=== PATIENT | female | born 1950 | race Caucasian/White ===

== ENCOUNTER 2024-04-02 06:26 | Day surgery (SDC) | payer MEDICARE, SELFPAY ==
[2024-03-29 07:58] VITALS: BMI 24.7
--- NOTE | 2024-03-29 12:33 | P.CONAN_ITS ---
Documented by User: Joanna Wharton NP 03/29/24 12:34 HPI - Anesthesia Eval Consult details Narrative: 73yo F for Right Cataract Extraction IOL Insertion No previous cataract on record [facility] Past Medical History Medical History Bilateral cataracts Osteoporosis Surgical History Surgical History H/O colonoscopy Social History Social History Are you a primary managed care coordinator to a significant other at home: No Do you presently have visiting nurse or other home services: No Patient Tobacco Use Status: Never used Tobacco Use of substances other than those prescribed or required for medical reasons: No Are you DNR?: No Advance Directives: No Advance Directives Information Provided: Yes Advance Directives on File: No Recently lost weight without trying: No Nutrition Risks: No Nutritional Risk Patient : No : No Meds Allergies Allergy/AdvReac Type Severity Reaction Status Date / Time Penicillins Allergy Unknown Verified 04/02/24 07:01 Home Medications ?Medication ?Instructions ?Recorded ?Confirmed ?Last Taken ?Type No Known Home Meds 03/29/24 03/29/24 Unknown History Exam Height,Weight and Vital Signs: Height 5 ft 1.02 in Weight 59.3 kg Assessment and Plan Assessment Anesthesia Assessment: Chart Reviewed Documented by User: Mary Guerrier MD 04/02/24 07:58 [facility] Past Medical History Medical History Bilateral cataracts Osteoporosis Surgical History Surgical History H/O colonoscopy History of Problems with Anesthesia: No Social History Social History Are you a primary managed care coordinator to a significant other at home: No Do you presently have visiting nurse or other home services: No Patient Tobacco Use Status: Never used Tobacco Use of substances other than those prescribed or required for medical reasons: No Are you DNR?: No Advance Directives: No Advance Directives Information Provided: Yes Advance Directives on File: No Recently lost weight without trying: No Nutrition Risks: No Nutritional Risk Patient : No : No Meds Allergies Allergy/AdvReac Type Severity Reaction Status Date / Time Penicillins Allergy Unknown Verified 04/02/24 07:01 Home Medications ?Medication ?Instructions ?Recorded ?Confirmed ?Last Taken ?Type No Known Home Meds 03/29/24 03/29/24 Unknown History Assessment and Plan Assessment Anesthesia Assessment: Anesthesia Plan Discussed Final Anesthetic Review History of Problems with Anesthesia: No NPO: Yes ASA Class: II Final Preanesthetic Review: Meds/Allgs Chart Reviewed, Consent Obtained/Reviewed and Anes Risks/Benef Reviewed Patient Risk: Low Procedure Risk: Low Anesthetic Plan Anesthetic Plan: MAC: Disposition: Standard PACU
--- OUTSIDE RECORDS SUMMARY | 2024-04-02 06:28 | XMS_ITS ---
Author Organization [facility] Address [address] [place] [address] Care Team Providers Care Cloth Folder Hand Name Role Phone LIZZ GUZMAN Unavailable [phone] ALLERGIES Allergen (clinical drug ingredient) Drug/Non Drug Allergy documented on EMR Reaction Allergy Type Onset Date Status Penicillin Unknown Drug Allergy Active REASON FOR VISIT pt here for MWV. Had labs done. no questions or concerns MEDICATIONS Medication SIG (Take, Route, Frequency, Duration) Notes Start Date End Date Status Collagen - as directed Externally Active Vitamin D 50 MCG (1999) 1 tablet Orally Once a day Active VITAL SIGNS Heart Rate 88 /min 08/24/2023 Blood pressure systolic 120 mm Hg 08/24/19 24 Blood pressure diastolic 85 mm Hg 024 Weight 124.4 lbs 08/24/2023 BMI 24.29 kg/m2 08/24/2023 Height 60 in 08/24/2023 Oximetry 99 % 08/24/2023 Encounters Encounter Location Date Provider Diagnosis [facility] [address] [place] [address] 08/24/2023 LIZZ GUZMAN Annual physical exam Z00.00 and Other specified counseling Z71.89 ASSESSMENTS Encounter Date Diagnosis Assessment Notes Treatment Notes Treatment Clinical Notes Section Notes 08/24/2023 Annual physical exam (ICD-10 - Z00.00) Medicare Wellness Patient seen and examined. Patient is here for Medicare wellness examination. I reviewed standard Medicare wellness paperwork including PHQ-9, list of medications, allergies,family history, social history, surgical history, and paperwork is scanned separately. I screened the patient for current standard preventive protocols and discussed role of colonoscopy, bone density,age appropriate immunizations including pneumonia vaccine, flu and COVID vaccine, new RSV vaccine and shingles vaccine. We discussed at length role of healthcare proxy. Having a healthcare proxy is important for decision making. Patient provided with healthcare proxy paperwork. Discussion started on end-of-life issues and [place] order of life-sustaining treatment. 08/24/2023 Other specified counseling (ICD-10 - Z71.89) Medicare Wellness Patient seen and examined. Patient is here for Medicare wellness examination. I reviewed standard Medicare wellness paperwork including PHQ-9, list of medications, allergies,family history, social history, surgical history, and paperwork is scanned separately. I screened the patient for current standard preventive protocols and discussed role of colonoscopy, bone density,age appropriate immunizations including pneumonia vaccine, flu and COVID vaccine, new RSV vaccine and shingles vaccine. We discussed at length role of healthcare proxy. Having a healthcare proxy is important for decision making. Patient provided with healthcare proxy paperwork. Discussion started on end-of-life issues and [place] order of life-sustaining treatment. PLAN OF TREATMENT Pending Test Test Name Order Date LIPID PANEL, STANDARD 08/24/2023 Next Appt Details Provider Name:LIZZ GUZMAN, 09:45:00 AM, [address] [facility], [place], [address], Progress Notes * Johana KINGOB:1950 ( 73 yo F)Acc No.[id number]:08/24/2023 Progress Note Patient:??LIVE Tracey Provider:??LIZZ GUZMAN MD :1950?Age:73 Y?Sex:Fe male Date:08/24/2023 Address:[address] [place], [place] [id number] Subjective: * Chief Complaints: * ?1. pt here for MWV. Lopez d labs done. no questions or concerns. * HPI: ?Constitutional:? Patient denies any chest pain shortness of breath or other active symptoms. ?Patient seen and examined. Chart was reviewed and edited. Medications were reviewed. Problem list reviewed updated. Allergies reviewed. Social history reviewed. Reviewed recent labs and imaging artist consultant notes. 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 * ROS:?All Other Systems:?Review of Systems (ROS)??All others negative except those mentioned in HPI.? * Medical History:??Osteoporos is, Hearing loss/ hearing aides. * Surgical History:??tolsillec olivia , adenoidectomy , section Mar 1979. * Hospitalization/Major Diagno stic Procedure:??Denies Past Hospitalization. * Family History:??Father: dec eased.??Mother: alive.??3 sister(s) . 1 son(s) , 1 daughter(s) . .?? father mhx parkinsons/dementia mother mhx non hidgkins lymphoma/osteoporosis sister 1 mhx melanoma sister 2 mhx breast cancer sister 3 mhx breast cancer daughter thyroidectomy. * Medications:??Taking Vitamin D 50 MCG (2000 UT) Tablet 1 tablet Orally Once a day , Taking Collagen - Cream as directed Externally , Discontinued HPA ADAPT ORAL , Discontinued Cortisol Gang Miner - Tablet as directed Orally , Discontinued Probiotic 250 MG Capsule as directed Orally once a day , Notes to Pharmacist: office liquid form, Discontinued Fish Oil 500 MG Capsule 1 capsule Orally Twice a day , Discontinued Vitamin C , Medication List reviewed and reconciled with the patient * Allergies:??Penicillin. Objective: * Vitals:??HR:88/min, BP:120/8 5mm Hg, Wt:124.4lbs, BMI:24.29Index, Ht: 60 in, Oxygen sat %:99%. * Physical Examination:?Patient seen and examined ?Vitals noted ?Head and ENT: PERRLA EOMI, neck supple, good range of motion, thyroid within normal limits. No sinus tenderness. ?Cardiovascular system S1 and S2 with no murmur or gallop or rubs. ?Lungs clear to percussion and auscultation ?Abdomen soft positive bowel sounds no hepatosplenomegaly ?Extremities no edema. ?Neuro: No gross deficit, sensation and power intact. Gait is stable. Reflexes appear normal ?Gait appears age-appropriate ?A small red triangular red spot at the bottom of the nose tip. Assessment: * Assessment: 1.??Annual physical exam - Z 00.00??2.??Other specified counseling - Z71.89?? Medicare Wellness Patient seen and examined. Patient is here for Medicare wellness examination. I reviewed standard Medicare wellness paperwork including PHQ-9, list of medications, allergies,family history, social history, surgical history, and paperwork is scanned separately. I screened the patient for current standard preventive protocols and discussed role of colonoscopy, bone density,age appropriate immunizations including pneumonia vaccine, flu and COVID vaccine, new RSV vaccine and shingles vaccine. We discussed at length role of healthcare proxy. Having a healthcare proxy is important for decision making. Patient provided with healthcare proxy paperwork. Discussion started on end-of-life issues and [place] order of life- sustaining treatment. Plan: * Treatment: * Labs:?? * ?Lab: LIPID PANEL, STANDARD * Procedure Codes:??G0439 SAVANNAH AL WELLNESS VST; PPS SUBSQT VST, G0442 ANNUAL ALCOHOL MISUSE SCREEN 15 MIN, Modifiers: 59 , G0444 ANNUAL DEPRESSION SCREENING 15 MIN, Modifiers: 59 * Images: Billing Information: * Visit Code:?? * Procedure Codes:?? G0439 ANNUAL WELLNESS VST; PPS SUBSQT VST. G0442 ANNUAL ALCOHOL MISUSE SCREEN 15 MIN. Modifiers: 59 G0444 ANNUAL DEPRESSION SCREENING 15 MIN. Modifiers: 59 Care Plan Details* * Sign off status: Completed true * Provider:??LIZZ GUZMAN MD Date:?? 024 History and Physical Notes * HPI (History of Present Illness) Category Sub-Category Detail Notes Category Not es Constitutional Patient denies any chest pain shortness of breath or other active symptoms. Patient seen and examined. Chart was reviewed and edited. Medications were reviewed. Problem list reviewed updated. Allergies reviewed. Social history reviewed. Reviewed recent labs and imaging artist consultant notes. 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 Physical Examination Category Sub-Category Detail Notes Section Note s Patient seen and examined Vitals noted Head and ENT: PERRLA EOMI, neck supple, good range of motion, thyroid within normal limits. No sinus tenderness. Cardiovascular system S1 and S2 with no murmur or gallop or rubs. Lungs clear to percussion and auscultation Abdomen soft positive bowel sounds no hepatosplenomegaly Extremities no edema. Neuro: No gross deficit, sensation and power intact. Gait is stable. Reflexes appear normal Gait appears age-appropriate A small red triangular red spot at the bottom of the nose tip
--- OUTSIDE RECORDS SUMMARY | 2024-04-02 06:28 | XMS_ITS ---
Author Organization [facility] Address [address] [place] [address] Care Team Providers Care Adult Services Librarian Name Role Phone LIZZ GUZMAN Unavailable [phone] RESULTS Component Value Reference Range Notes LIPID PANEL, STANDARD Reviewed date:08/26/2023 10:33:11 AM Interpretation: Performing Lab:NL2, [place] [facility] [place], [place] [id number] Gail Paz Notes/Report: FASTING: YES FASTING:YES CHOLESTEROL, TOTAL 230 <200 mg/dL HDL CHOLESTEROL 73 > OR = 50 mg/dL TRIGLYCERIDES 94 <150 mg/dL LDL-CHOLESTEROL 137 Reference range: <100 Desirable range <100 mg/dL for primary prevention; <70 mg/dL for patients with CHD or diabetic patients with > or = 2 CHD risk factors. LDL-C is now calculated using the Edward-Fox calculation, which is a validated novel method providing better accuracy than the Friedewald equation in the estimation of LDL-C. Edward LOYA et al. LIANA. 2013;310(19): 8914-7090 (http://education.HemoShear.com/faq/FAQ16 4) CHOL/HDLC RATIO 3.2 <5.0 (calc) NON HDL CHOLESTEROL 157 <130 mg/dL (calc) For patients with diabetes plus 1 major ASCVD risk factor, treating to a non-HDL-C goal of <100 mg/dL (LDL-C of <70 mg/dL) is considered a therapeutic option. COMPREHENSIVE METABOLIC PANE L Reviewed date:08/26/2023 10:29:12 AM Interpretation: Performing Lab:NL2, [place] [id number] Gail Paz Notes/Report: FASTING:YES FASTING: YES GLUCOSE 85 65-99 mg/dL Fasting reference interval UREA NITROGEN (BUN) 15 7-25 mg/dL CREATININE 0.84 0.60-1.00 mg/dL EGFR 74 > OR = 60 mL/min/1.73m2 BUN/CREATININE RATIO SEE NOTE: - (calc) Not Reported: BUN and Creatinine are within reference range. SODIUM 137 135-146 mmol/L POTASSIUM 4.5 3.5-5.3 mmol/L CHLORIDE 101 98-110 mmol/L CARBON DIOXIDE 27 20-32 mmol/L CALCIUM 9.8 8.6-10.4 mg/dL PROTEIN, TOTAL 7.4 6.1-8.1 g/dL ALBUMIN 4.4 3.6-5.1 g/dL GLOBULIN 3.0 1.9-3.7 g/dL (calc) ALBUMIN/GLOBULIN RATIO 1.5 1.0-2.5 (calc) BILIRUBIN, TOTAL 0.4 0.2-1.2 mg/dL ALKALINE PHOSPHATASE 78 37-153 U/L AST 17 10-35 U/L ALT 11 6-29 U/L CBC (INCLUDES DIFF/PLT) Reviewed date:08/26/2023 10:32:49 AM Interpretation: Performing Lab:NL2, [id number] Gail Paz Notes/Report: FASTING:YES FASTING: YES WHITE BLOOD CELL COUNT 5.5 3.8-10.8 Thousand/ uL RED BLOOD CELL COUNT 4.98 3.80-5.10 Million/uL HEMOGLOBIN 14.0 11.7-15.5 g/dL HEMATOCRIT 44.9 35.0-45.0 % MCV 90.2 80.0-100.0 fL MCH 28.1 27.0-33.0 pg MCHC 31.2 32.0-36.0 g/dL RDW 13.5 11.0-15.0 % PLATELET COUNT 253 140-400 Thousand/uL MPV 9.7 7.5-12.5 fL ABSOLUTE NEUTROPHILS 3042 0055-1267 cells/uL ABSOLUTE LYMPHOCYTES [phone] cells/uL ABSOLUTE MONOCYTES 501 200-950 cells/uL ABSOLUTE EOSINOPHILS 160 15-500 cells/uL ABSOLUTE BASOPHILS 50 0-200 cells/uL NEUTROPHILS 55.3 LYMPHOCYTES 31.8 MONOCYTES 9.1 EOSINOPHILS 2.9 BASOPHILS 0.9 URINALYSIS, COMPLETE Reviewed date:08/26/2023 10:29:32 AM Interpretation: Performing Lab:NL2, [place] [id number] Sharrisuki Fernanda Rowley Notes/Report: FASTING:YES FASTING: YES COLOR YELLOW YELLOW APPEARANCE CLEAR CLEAR SPECIFIC GRAVITY 1.006 1.001-1.035 PH 6.0 5.0-8.0 GLUCOSE NEGATIVE NEGATIVE BILIRUBIN NEGATIVE NEGATIVE KETONES NEGATIVE NEGATIVE OCCULT BLOOD NEGATIVE NEGATIVE PROTEIN NEGATIVE NEGATIVE NITRITE NEGATIVE NEGATIVE LEUKOCYTE ESTERASE NEGATIVE NEGATIVE WBC NONE SEEN < OR = 5 /HPF RBC NONE SEEN < OR = 2 /HPF SQUAMOUS EPITHELIAL CELLS NONE SEEN < OR = 5 /HPF BACTERIA NONE SEEN NONE SEEN /HPF HYALINE CAST NONE SEEN NONE SEEN /LPF NOTE This urine was analyzed for the presence of WBC, RBC, bacteria, casts, and other formed elements. Only those elements seen were reported. VITAMIN D,25-OH,TOTAL,IA Reviewed date:08/26/2023 10:29:59 AM Interpretation: Performing Lab:NL2, [place] [id number] Gail Paz Notes/Report: FASTING:YES FASTING: YES VITAMIN D,25-OH,TOTAL,IA 70 30-100 ng/mL Vitamin D Status 25-OH Vitamin D: Deficiency: <20 ng/mL Insufficiency: 20 - 29 ng/mL Optimal: > or = 30 ng/mL For 25-OH Vitamin D testing on patients on D2-supplementation and patients for whom quantitation of D2 and D3 fractions is required, the [facility]() 25-OH VIT D, (D2,D3), LC/MS/MS is recommended: order code 42765 (patients >2yrs). See Note 1 Note 1 For additional information, please refer to http://education.August/faq/IUB486 (This link is being provided for informational/ educational purposes only.) Encounters Encounter Location Date Provider Diagnosis [facility] [address] [place] [address] 08/17/2023 LIZZ GUZMAN Adult general medica l exam Z00.00 ; Vitamin D deficiency E55.9 ; Abdominal discomfort R10.9 and Tachycardia R00.0 ASSESSMENTS Encounter Date Diagnosis Assessment Notes Treatment Notes Treatment Clinical Notes Section Notes 08/17/2023 Adult general medical exam (ICD-10 - Z00.00) 08/17/2023 Vitamin D deficiency (ICD-10 - E55.9) 08/17/2023 Abdominal discomfort (ICD-10 - R10.9) 08/17/2023 Tachycardia (ICD-10 - R00.0) PLAN OF TREATMENT Next Appt Details Provider Name:LIZZ GUZMAN, 09:45:00 AM, [address], [place], [address], Progress Notes * Johana MANCINIOB:1950 ( 73 yo F)Acc No.[id number]:08/17/2023 Patient:??Tracey MANCINI :1950?Age:73 Y?Sex:Fe male Address:[address] [place] [address] Subjective: * Chief Complaints: * ? * Medical History:?? * Surgical History:?? * Hospitalization/Major Diagno stic Procedure:?? * Medications:?? Objective: Assessment: * Assessment: 1.??Adult general medical ex am - Z00.00??2.??Vitamin D deficiency - E55.9??3.??Abdominal discomfort - R10.9??4.??Tachycardia - R00.0?? Plan: * Treatment: 2.??Vitamin D deficiency?LAB: LIPID PANEL, STANDARD ?LAB: COMPREHENSIVE METABOLIC PANEL ?LAB: CBC (INCLUDES DIFF/PLT) ?LAB: URINALYSIS, COMPLETE ?LAB: VITAMIN D,25-OH,TOTAL,IA 3.??Abdominal discomfort?LAB: LIPID PANEL, STANDARD ?LAB: COMPREHENSIVE METABOLIC PANEL ?LAB: CBC (INCLUDES DIFF/PLT) ?LAB: URINALYSIS, COMPLETE ?LAB: VITAMIN D,25-OH,TOTAL,IA 4.??Tachycardia?LAB: LIPID PANEL, STANDARD ?LAB: COMPREHENSIVE METABOLIC PANEL ?LAB: CBC (INCLUDES DIFF/PLT) ?LAB: URINALYSIS, COMPLETE ?LAB: VITAMIN D,25-OH,TOTAL,IA * Procedure Codes:?? * true * Date:??
--- OUTSIDE RECORDS SUMMARY | 2024-04-02 06:28 | XMS_ITS ---
Author Organization [facility] Address [address] [place] [address] Care Team Providers Care Cutting Torch Operator Name Role Phone LIZZ GUZMAN Unavailable [phone] Encounters Encounter Location Date Provider Diagnosis [facility] [address] [place] [address] 04/26/2023 WILMERMOISÉS MEGAN PLAN OF TREATMENT Next Appt Details Provider Name:WILMERMOISÉS GUZMAN, 09:45:00 AM, [address], [place], [address], Progress Notes * Johana KINGOB:1950 ( 72 yo F)Acc No.[id number]:04/26/2023 Patient:??Tracey KING :1950?Age:72 Y?Sex:Fe male Address:[address] [place] [address] * true * Date:??
--- OUTSIDE RECORDS SUMMARY | 2024-04-02 06:29 | XMS_ITS | Patient Health Record ---
Author Organization [facility] Address [address] [place] [address] Care Team Providers Care [address] Magistrate Name Role Phone LIZZ GUZMAN Unavailable [phone] ALLERGIES Allergen (clinical drug ingredient) Drug/Non Drug Allergy documented on EMR Reaction Allergy Type Onset Date Status Penicillin Unknown Drug Allergy Active RESULTS Component Value Reference Range Notes LIPID PANEL, STANDARD Reviewed date:08/26/2023 10:33:11 AM Interpretation: Performing Lab:NL2, [facility] [place], [place] [address] Gail Paz Notes/Report: FASTING:YES FASTING: YES CHOLESTEROL, TOTAL 230 <200 mg/dL HDL CHOLESTEROL 73 > OR = 50 mg/dL TRIGLYCERIDES 94 <150 mg/dL LDL-CHOLESTEROL 137 Reference range: <100 Desirable range <100 mg/dL for primary prevention; <70 mg/dL for patients with CHD or diabetic patients with > or = 2 CHD risk factors. LDL-C is now calculated using the Edward-Dominique calculation, which is a validated novel method providing better accuracy than the Friedewald equation in the estimation of LDL-C. Edward SS et al. LIANA. 2013;310(19): 1284-2672 (http://education.Pombai.com/faq/FAQ16 4) CHOL/HDLC RATIO 3.2 <5.0 (calc) NON HDL CHOLESTEROL 157 <130 mg/dL (calc) For patients with diabetes plus 1 major ASCVD risk factor, treating to a non-HDL-C goal of <100 mg/dL (LDL-C of <70 mg/dL) is considered a therapeutic option. COMPREHENSIVE METABOLIC PANE L Reviewed date:08/26/2023 10:29:12 AM Interpretation: Performing Lab:NL2, [facility] [place] Gail Rowley Notes/Report: FASTING:YES FASTING: YES GLUCOSE 85 65-99 mg/dL Fasting reference interval UREA NITROGEN (BUN) 15 7-25 mg/dL CREATININE 0.84 0.60-1.00 mg/dL EGFR 74 > OR = 60 mL/min/1.73m2 BUN/CREATININE RATIO SEE NOTE: 6-22 (calc) Not Reported: BUN and Creatinine are [...] Reviewed date:08/26/2023 10:32:49 AM Interpretation: Performing Lab:NL2, [facility]UD[facility] [address] [facility], [place] [facility] Notes/Report: FASTING:YES FASTING: YES WHITE BLOOD CELL COUNT 5.5 3.8-10.8 Thousand/ uL RED BLOOD CELL COUNT 4.98 3.80-5.10 Million/uL HEMOGLOBIN 14.0 11.7-15.5 g/dL HEMATOCRIT 44.9 35.0-45.0 % MCV 90.2 80.0-100.0 fL MCH 28.1 27.0-33.0 pg MCHC 31.2 32.0-36.0 g/dL RDW 13.5 11.0-15.0 % PLATELET COUNT 253 140-400 Thousand/uL MPV 9.7 7.5-12.5 fL ABSOLUTE NEUTROPHILS 3042 1289-7179 cells/uL ABSOLUTE LYMPHOCYTES 5612 730-5222 cells/uL ABSOLUTE MONOCYTES 501 200-950 cells/uL ABSOLUTE EOSINOPHILS 160 15-500 cells/uL ABSOLUTE BASOPHILS 50 0-200 cells/uL NEUTROPHILS 55.3 LYMPHOCYTES 31.8 MONOCYTES 9.1 EOSINOPHILS 2.9 BASOPHILS 0.9 URINALYSIS, COMPLETE Reviewed date:08/26/2023 10:29:32 AM Interpretation: Performing Lab:NL2, [facility] Gail Paz Notes/Report: FASTING:YES FASTING: YES COLOR YELLOW YELLOW [...] Reviewed date:08/26/2023 10:29:59 AM Interpretation: Performing Lab:NL2, [facility] Gail Paz Notes/Report: FASTING:YES FASTING: YES VITAMIN D,25-OH,TOTAL,IA 70 30-100 ng/mL Vitamin D Status 25-OH Vitamin D: Deficiency: <20 ng/mL Insufficiency: 20 - 29 ng/mL Optimal: > or = 30 ng/mL For 25-OH Vitamin D testing on patients on D2-supplementation and patients for whom quantitation of D2 and D3 fractions is required, the QuestAssureD(TM) 25-OH VIT D, (D2,D3), LC/MS/MS is recommended: order code 90512 (patients >2yrs). See Note 1 Note 1 For additional information, please refer to http://education.Online-OR/faq/KVX492 (This link is being provided for informational/ educational purposes only.) [facility] Reviewed date:07/22/2023 09:23:16 AM Interpretation: Performing Lab: Notes/Report: Original Ordering Provider: LIZZ GUZMAN MD [facility] REASON FOR REFERRAL No Information MEDICATIONS Medication SIG (Take, Route, Frequency, Duration) Notes Start Date End Date Status Collagen - as directed Externally Active Vitamin D 50 MCG (1999 UT) 1 tablet Orally Once a day Active PROBLEMS Problem Type ICD Code Onset Dates Problem Status W/U Status Risk SNOMED Code Notes Problem Encounter for general adult medical examination without abnormal findings (Z00.00) Active confirmed 326176956 Problem Encounter for screening for lipoid disorders (Z13.220) Active confirmed 258718717 Problem Encounter for screening for cardiovascular disorders (Z13.6) Active confirmed 684587851 Problem Adult general medical exam (Z00.00) Active confirmed Adult health examination (853465859) Problem Vitamin D deficiency (E55.9) Active confirmed Vitamin D deficiency (71474234) Problem Osteoporosis without current pathological fracture, unspecified osteoporosis type (M81.0) Active confirmed 83253411 VITAL SIGNS Heart Rate 88 /min 08/24/2023 Oximetry 99 % 08/24/2023 Blood pressure diastolic 85 mm Hg 08/24/2023 Height 60 in 08/24/2023 Blood pressure systolic 120 mm Hg 08/24/2023 Weight 124.4 lbs 08/24/2023 BMI 24.29 kg/m2 08/24/2023 Encounters Encounter Location Date Provider Diagnosis [facility] [address] [place] [address] 08/24/2023 LIZZ GUZMAN Annual physical exam Z00.00 and Other specified counseling Z71.89 [facility] [address] [place] [address] 04/26/2023 LIZZ GUZMAN [facility] [address] [place] [address] 08/17/2023 LIZZ GUZMAN Adult general medica l [...] paperwork. Discussion started on end-of-life issues and [place] order of life-sustaining treatment. 08/17/2023 Adult general medical exam (ICD-10 - Z00.00) 08/17/2023 Vitamin D deficiency (ICD-10 - E55.9) 08/24/2023 Other specified counseling (ICD-10 - Z71.89) [...] paperwork. Discussion started on end-of-life issues and [place] order of life-sustaining treatment. 08/17/2023 Abdominal discomfort (ICD-10 - R10.9) 08/17/2023 Tachycardia (ICD-10 - R00.0) PLAN OF TREATMENT Pending Test Test Name Order Date Mammogram 06/15/2021 Bone Density 05/20/2021 EKG 07/17/2021 LIPID PANEL, STANDARD 07/17/2021 LIPID PANEL, STANDARD 08/24/2023 VITAMIN D,25-OH,TOTAL,IA 09/25/2021 Next Appt Details Provider Name:LIZZ GUZMAN, 09:45:00 AM, [address], [place], [address], Insurance Providers Payer Name Payer Address Payer Phone Subscriber Number Group Number Insured Name Patient Relationship to Insured Coverage Start Date Coverage End Date [employer] Medicare Advantage [address] [place] [address] [id number] Tracey Mancini Self - patient is the insured MEDICAL (GENERAL) HISTORY Medical History History ICD Code osteoporosis hearing loss/ hearing aides Surgical History Surgery Date(Month/Year) tolsillectomy adenoidectomy section Mar 1979
--- OUTSIDE RECORDS SUMMARY | 2024-04-02 06:29 | XMS_ITS | Data Portability ---
Author Organization [facility] [address] Address [address] [place] [address] Assessment No assessment recorded. Plan of Treatment Reminders Order Date Submit Date Provider Last Modified By Organization Details Last Modified Time Details Appointments None recorde d. Lab rapid flu (A+B) 024 05/07/19 24 [email or web address] [address] [place], [address], 13:58:53 Referral None recorde d. Procedures None recorde d. Surgeries None recorde d. Imaging None recorde d. Medication Orders None recorde d. Patient TargetsNo targets recorded. Patient Instructions Encounter Date Encounter Id Patient Instructions Last Modified By Organization Details Last Modified Time 05/07/2023 [id number] viral infections : care instructions [email or web address] Not available 05/07/2023 13:58:52 influenza (flu): care instructions [email or web address] Not available 05/07/2023 13:58:52 cough: care instructions [email or web address] Not available 05/07/2023 13:58:52 It is possible that you had influenza last week but are testing negative now. Your lung exam is unremarkable, no overt evidence for pneumonia. Rest. Drink plenty of fluids. Support your immune system with Vitamin D3, Vitamin C, zinc and elderberry. See printed instructions. Follow-up with your doctor if no improvement in a few days. Seek Emergency Medical evaluation for any worsening symptoms, particularly for high fever, shaking chills, severe headache, rash, stiff neck, chest pain, shortness of breath., coughing up blood. [email or web address] Not available 05/07/2023 14:01:00 Reason for Referral None Reported. Results Created Date Observation Date Name Description Value Unit Range Abnormal Flag Note LastModifiedBy Organization Detail LastModifiedTime 05/07/19 24 05/07/2023 rapid flu (A+B) Unknown Analyte negati ve Not Available [id number] [place], [address], 05/07/2023 13:03:40 05/07/19 24 05/07/2023 rapid flu (A+B) Unknown Analyte negati ve Not Available [address] [place], [address], 05/07/2023 13:03:40 05/07/19 24 05/07/2023 rapid flu (A+B) Unknown Analyte yes Not Available _ [facility] [address] [place], [address], 05/07/2023 13:03:40 Result Notes None recorded. Problems Name Problem SNOMED Code Status Onset Date Resolution Date Notes Provider Name and Address Organization Details Recorded Time Osteoporosis 20943051 Active Nelli Yelena null, [place] - [facility] 4 13:00:20 Problem Notes None recorded. Medical Equipment None Reported. Allergies Allergen ID Allergen Name Allergen Category Reaction Reaction Severity Criticality Documentation Date Start Date Code Code System Note Provider Name and Address Organization Details Recorded Time 834218 Medicinal product containin g penicilli n and acting as antibacte rial agent (product) medicatio n Not available Not available Not available 05/07/2023 48947 05 SNOMED Nelli Yelena null, PA - [facility] 4 13:00:01 Medications Not known to be on any medication Vitals Date Recorded Body height Body mass index (BMI) Body weight Oxygen saturation Oxygen saturation in Arterial blood by Pulse oximetry Heart rate Respiratory rate Body temperature Systolic blood pressure Diastolic blood pressure Provider Name and Address Organization Details Last Updated DateTime 4 154.94 cm 22.7 kg/m2 14699.0 8 g 94 % 94 % 91 /min 19 /min 98.2 [degF] 135 mm[Hg] 79 mm[Hg] Nelli Yelena PA - [facility] 13:04:14 Social History Question Answer Notes LastModified by Organizat ion Details LastModified Time Tobacco Smoking Status Never Smoker Nelli hdz PA - [facility] 05/07/2023 13:00:33 What Is Your Level Of Alcohol Consumption? None Information not available 05/07/2023 Have You Had A Flu Shot This Season? No Information not available 05/07/2023 Have You Had Direct Contact, Or Contact During Intimacy, With Monkeypox Rash, Scabs, Or Body Fluids From A Person With Monkeypox? No Information not available 05/07/2023 What Was The Date Of Your Most Recent Tobacco Screening? 05/07/2023 Information not available 05/07/2023 Do You Use Any Illicit Or Recreational Drugs? No Information not available 05/07/2023 Have You Recently Traveled Abroad? No Information not available 05/07/2023 Do You Or Have You Ever Used Any Other Forms Of Tobacco Or Nicotine? No Information not available 05/07/2023 Sex: Unknown Functional Status None recorded. Mental Status None recorded. Family History Nothing Reported. Medical History No medical history recorded. Gynecological History Statement/Question Response LMP Unknown Obstetrics History GPAL:G 0 P 0 0 0 0 Past Encounters Encounter ID Performer Location Encounter Start Date Encounter Closed Date Diagnosis/Indication Diagnosis SNOMED-CT Code Diagnosis ICD10 Code Diagnosis Note [id number] [address] [address] [place] [address] 11/29/2017 17:34:50 11/29/2017 18:34:37 [id number] [place] [address] [facility] [address] [place] [address] 05/07/2023 11:52:15 05/07/2023 14:01:49 Cough 17449452 R05.9 Viral syndrome 718195197 B34.9 Health Concerns Section Related Observation LastModified by Organization Detai ls LastModified Time None Recorded Concern Status LastModified by Organization Details LastModified Time None Recorded Advance Directives Directive None Recorded Payers Encounter Date Sequence Insurance Name Policy Number Policy Browning Covered Member ID Browning Member ID Guarantor Name 11/29/2017 1 [facility] (MEDICARE REPLACEMENT HMO) [id number] Tracey Mancini [id number] Tracey Mancini 05/07/2023 1 [facility] (MEDICARE REPLACEMENT HMO) [id number] Tracey Ochoa Live [id number] Tracey Manicni Notes Date Note Type Note Provider Name and Address Organization Details Recorded Time 4 text/html CoughReported bypatient.source of patient informationInformation obtained from patient; Patient arrived at Urgent Care ambulatory Quality:productive cough Severity:moderate Timing:constant Context:family members ill with similar symptoms Modifying Factors:None. Associated Symptoms:no chest pain; no heartburn; no nausea; no vomiting; no edema; no agitation; no wheezing; no post nasal drip; Transient fever and chills for one day - now resolved.Notes:73 year old female presenting for evaluation of a persistent productive cough for the past 8 days. She had transient fever and chills 8 days ago which resolved after one day. No headache, rash, stiff neck, sore throat, nasal congestion, wheezing, shortness of breath, GI symptoms or body aches. She has some chest congestion. She reports that her recently tested positive for influenza. Marianna Lange MD [address] [place], [address], [place] - [facility] 05/12/2023 09:46:26 OBGyn Episode No OBEpisode recorded.
[2024-04-02 07:06] VITALS: BP 128/71; PULSE 89; RESP 15; TEMP 37.1; O2SAT 97
[2024-04-02] MEDS: Tetracaine HCl/PF 0.5% Oph Sol 4 ML DROPS 1 DROP EYE-RIGHT (07:15)
[2024-04-02] MEDS: Cyclopentolate 1 % Ophth Sol 2 ML DRPBTL 1 DROP EYE-RIGHT ×3 (07:18→07:34)
[2024-04-02] MEDS: Tropicamide 1 % Ophth Sol 3 ML BTL 1 DROP EYE-RIGHT ×3 (07:19→07:35)
[2024-04-02] MEDS: Ketorolac Tromethamine 0.5% Op 10 ML DROPS 1 DROP EYE-RIGHT ×3 (07:22→07:38)
[2024-04-02] MEDS: Phenylephrine HCL 2.5% Oph SoL 2 ML BOTTLE 1 DROP EYE-RIGHT ×3 (07:23→07:39)
[2024-04-02] MEDS: Lactated Ringers 500 ML 50 ML IV (07:23)
--- NOTE | 2024-04-02 07:53 | MHC.SHP ---
Pre-Procedural Eval Section A - 24 Hr Update-Section A only Date of Service: 04/02/24 The patient is an INPATIENT: No Changes since office visit: No Cold of Flu in the past 2 weeks, No New Medical Problems, No Changes in Medication and No Patient answered all questions The patient has been examined within 24 hours of the surgical procedure. The History & Physical has been completed within 30 days and I have reviewed it.: Yes Section B - Complete if H&P > 30 days Chief Complaint: Age-related nuclear cataract, right eye Allergies: Allergies Allergy/AdvReac Type Severity Reaction Status Date / Time Penicillins Allergy Unknown Verified 04/02/24 07:01 Plan Diagnosis/Plan: Unchanged I have reviewed the history and physical and performed a pertinent physical examination on my patient. No changes have occurred unless specified. Time Spent With Patient Time: Total time managing care of this patient today ____ minutes.
--- NOTE | 2024-04-02 07:54 | P.PCNO_ITS ---
Ophthalmology Procedure Procedure Date of Service: 04/02/24 Ophthalmology Viscoelastic: Healon Duet Dual Pack Pro Ophthalmology Lenses: IOL Acrysof MP - MA60AC (16.5) Procedure Notes: PREOPERATIVE DIAGNOSIS: Decreased visual acuity right eye secondary to cataract POSTOPERATIVE DIAGNOSIS: Same PROCEDURE: Right cataract extraction with intraocular lens insertion SURGEON: Stevan Lechuga M.D. ANESTHESIA: Topical/MAC ESTIMATED BLOOD LOSS: None COMPLICATIONS: None After obtaining informed consent, the patient was brought to the operating room suite and placed in the supine position. After adequate sedation per anesthesia, topical drops of Tetracaine were given to the right eye. The eye was then prepped and draped in the usual sterile fashion. The operating room microscope was then positioned over the operative eye and a lid speculum placed. A paracentesis was created. Viscoelastic was then instilled into the anterior chamber. A three plane incision was then created temporally, utilizing a 2.85 mm keratome. Capsulotomy forceps were then utilized to create a circular tear capsulotomy. Hydrodissection and hydrodelineation were carried out until adequate mobilization of the nucleus occurred. Phacoemulsification was then utilized to remove the dense central nu cleus followed by removal of the cortical material utilizing the automated aspiration irrigation unit. Viscoelastic was instilled into the posterior capsular bag followed by placement of a posterior chamber intraocular lens without difficulty. The residual Viscoelastic was then removed utilizing the automated IA machine. The wound was checked and found to be watertight. The patient tolerated the procedure well and the lid speculum was removed. Intracameral injection of Vigamox 0.1 mL followed by a subtenon injection of Kenalog-40 0.2 mL were administered. The patient will be seen in the a.m.
[2024-04-02 08:29] VITALS: BP 120/63; PULSE 81; RESP 16; TEMP 36.2; O2SAT 98
== END 2024-04-02 08:41 | disposition home or self-care (01) ==
PROVIDERS: PCP Internal Medicine; Visit Provider Ophthalmology
PROC: (CPT 66985; principal; 2024-04-02 08:00)
DX: H25.11 Age-related nuclear cataract, right eye (principal); H52.4 Presbyopia; H18.413 Arcus senilis, bilateral; H11.153 Pinguecula, bilateral; H35.09 Other intraretinal microvascular abnormalities; M81.0 Age-related osteoporosis without current pathological fracture; Z88.0 Allergy status to penicillin
CPT/HCPCS: 66984; J2250; J3301; V2630

== ENCOUNTER 2024-04-16 06:16 | Day surgery (SDC) | payer MEDICARE, SELFPAY ==
[2024-03-29 08:04] VITALS: BMI 24.7
--- OUTSIDE RECORDS SUMMARY | 2024-04-16 06:21 | XMS_ITS | Data Portability ---
Author Organization [facility] [address] Address [address] [place] [address] Assessment No assessment recorded. Plan of Treatment Reminders Order Date Submit Date Provider Last Modified By Organization Details Last Modified Time Details Appointments None recorde d. Lab rapid flu (A+B) 024 05/07/19 24 [address] [place], [address], 13:58:53 Referral None recorde d. Procedures None recorde d. Surgeries None recorde d. Imaging None recorde d. Medication Orders None recorde d. Patient TargetsNo targets recorded. Patient Instructions Encounter Date Encounter Id Patient Instructions Last Modified By Organization Details Last Modified Time 05/07/2023 [id number] viral infections : care instructions [email or web address] Not available 05/07/2023 13:58:52 influenza (flu): care instructions [email or web address] Not available 05/07/2023 13:58:52 cough: care instructions [email or web address] Not available 05/07/2023 13:58:52 It is possible [...] pain, shortness of breath., coughing up blood. [email or web address] Not available 05/07/2023 14:01:00 Reason for Referral None Reported. Results Created Date Observation Date Name Description Value Unit Range Abnormal Flag Note LastModifiedBy Organization Detail LastModifiedTime 05/07/19 24 05/07/2023 rapid flu (A+B) Unknown Analyte negati ve Not Available [id number] [place], [address], 05/07/2023 13:03:40 05/07/19 24 05/07/2023 rapid flu (A+B) Unknown Analyte negati ve Not Available [id number] [place], [address], 05/07/2023 13:03:40 05/07/19 24 05/07/2023 rapid flu (A+B) Unknown Analyte yes Not Available _ [facility] [address] [place], [address], 05/07/2023 13:03:40 Result Notes None recorded. Problems Name Problem SNOMED Code Status Onset Date Resolution Date Notes Provider Name and Address Organization Details Recorded Time Osteoporosis 92960147 Active Nelli Yelena null, PA - [facility] 13:00:20 Problem Notes None recorded. Medical Equipment None Reported. Allergies Allergen ID Allergen Name Allergen Category Reaction Reaction Severity Criticality Documentation Date Start Date Code Code System Note Provider Name and Address Organization Details Recorded Time 345071 Product containin g penicilli n and antibioti c (product) medicatio n Not available Not available Not available 05/07/2023 41755 05 SNOMED Nelli Yelena null, PA - [facility] 13:00:01 Medications Not known to be on any medication Vitals Date Recorded Body height Provider Name an d Address Organization Details Last Updated DateTime 05/07/2023 154.94 cm Nelli Yelena PA - [facility] 05/07/2023 13:01:04 Date Recorded Body mass index (BMI) Body weight Provider Name and Address Organization Details Last Updated DateTime 05/07/2023 22.7 kg/m2 59458.08 g Nelli Yelena PA - [facility] 05/07/2023 13:01:07 Date Recorded Oxygen saturation Oxygen saturation in Arterial blood by Pulse oximetry Provider Name and Address Organization Details Last Updated DateTime 05/07/2023 94 % 94 % Nelli Kirk PA - [facility] 05/07/2023 13:03:09 Date Recorded Heart rate Provider Name an d Address Organization Details Last Updated DateTime 05/07/2023 91 /min Nellimadeleine Kirk PA - [facility] 05/07/2023 13:03:11 Date Recorded Respiratory rate Provider Name a nd Address Organization Details Last Updated DateTime 05/07/2023 19 /min Nelli Kirk PA - [facility] 05/07/2023 13:03:12 Date Recorded Body temperature Provider Name a nd Address Organization Details Last Updated DateTime 05/07/2023 98.2 [degF] Nelli Kirk PA - [facility] 05/07/2023 13:03:34 Date Recorded Systolic blood pressure Diastolic blood pressure Provider Name and Address Organization Details Last Updated DateTime 05/07/2023 135 mm[Hg] 79 mm[Hg] Nelli Kirk PA - [facility] 05/07/2023 13:04:14 Social History Question Answer Notes LastModified by Organizat ion Details LastModified Time Tobacco Smoking Status Never Smoker Nelli Kirk andreina, PA - [facility] 05/07/2023 13:00:33 What [...] SNOMED-CT Code Diagnosis ICD10 Code Diagnosis Note [id number] [address] [address] [place] [address] 11/29/2017 17:34:50 11/29/2017 18:34:37 [id number] Marianna Lange [facility] [address] [facility] [address] [place] [address] 05/07/2023 11:52:15 05/07/2023 14:01:49 Cough 17809472 R05.9 Viral syndrome 136191411 B34.9 Health Concerns Section Related Observation LastModified by Organization Detai ls LastModified Time None Recorded Concern Status LastModified by Organization Details LastModified Time None Recorded Advance Directives Directive None Recorded Payers Encounter Date Sequence Insurance Name Policy Number Policy Browning Covered Member ID Browning Member ID Guarantor Name 11/29/2017 1 [facility]UE (MEDICARE REPLACEMENT HMO) [id number] Tracey Mancini [id number] Tracey Mancini 05/07/2023 1 [facility]UE (MEDICARE REPLACEMENT HMO) [id number] Tracey Mancini [id number] Tracey Mancini Notes Date Note Type Note Provider Name [...] positive for influenza. Marianna Lange MD [address] [place], [address], [place] - [facility] 05/12/2023 09:46:26 OBGyn Episode No OBEpisode recorded.
--- OUTSIDE RECORDS SUMMARY | 2024-04-16 06:21 | XMS_ITS | Continuity of Care Document ---
Author Organization [facility] Address [address] [place] [id number]- Care Team Providers Care Russian Teacher Name Role Phone Taylor WADDELL, Amanda Gama Primary Care Phys[id number] Date(s): [facility]/19/24 - 03/26/24 [facility] [address] [place] [id number] Attending Physician: Leo Campos MD Referring Physician: Stevan Lechuga MD Encounter Type: Office Visit Allergies, Adverse Reactions, Alerts Substance Criticality Severity Reaction Reaction Severity Status penicillin Active Problem List Condition Confirmation Course Effective Dates Status Health St atus Informant Bilateral cataracts Confirmed Active Osteoporosis Confirmed Active Procedures Procedure Date Related Diagnosis Body Site Status Colonoscopy Completed Vital Signs Most recent to oldest [Reference Range]: 1 Height 155 cm (03/19/24 10:42 AM) Weight 59.3 kg (03/19/24 10:40 AM) Oxygen Saturation [94-100 %] 99 % (03/19/24 10:40 AM) Pulse Rate [55-90 bpm] 113 bpm *H* (03/19/24 10:40 AM) Blood Pressure [90-138/55-84 mm Hg] 153/ 71mm Hg *H* (03/19/24 10:40 AM) Respiratory Rate [16-30 br/min] 24 br/mi n (03/19/24 10:40 AM) Mode of Delivery (Oxygen) Room air (03/19/24 10:40 AM) Blood pressure sites Arm, left (03/19/24 10:40 AM) Weight Obtained Via Standing scale (03/19/24 10:40 AM) Social History Social History Type Response Smoking Status Never (less than 100 in lifetime) entered on: 03/19/24 Sex Sex Representation Female (finding) Patient Care team information Care Team Personnel Name: Amanda Vazquez MD Position: S Outreach Member Role: PCP [address]: [address] [place] [address] #[facility] [address] Telecom: Care Team Related Persons Name: SINA KING Insurance Providers Guarantor name: KETAN Health Plan Information #: 1 Payer: MEDICARE HMO [employer] [facility] Member Number: [id number] Policy Number: KETAN Group Number: KETAN Health Plan Information #: 2 Payer: MEDICARE [employer] [facility] Member Number: [id number] Policy Number: KETAN Group Number: [id number]
[2024-04-16 06:48] VITALS: BP 128/67; PULSE 79; RESP 14; TEMP 37.1; O2SAT 98
[2024-04-16] MEDS: Tetracaine HCl/PF 0.5% Oph Sol 4 ML DROPS 1 DROP EYE-LEFT (06:58)
[2024-04-16] MEDS: Tropicamide 1 % Ophth Sol 3 ML BTL 1 DROP EYE-LEFT ×3 (07:00→07:07)
[2024-04-16] MEDS: Cyclopentolate 1 % Ophth Sol 2 ML DRPBTL 1 DROP EYE-LEFT ×3 (07:00→07:06)
[2024-04-16] MEDS: Ketorolac Tromethamine 0.5% Op 10 ML DROPS 1 DROP EYE-LEFT ×3 (07:01→07:07)
[2024-04-16] MEDS: Phenylephrine HCL 2.5% Oph SoL 2 ML BOTTLE 1 DROP EYE-LEFT ×3 (07:02→07:08)
[2024-04-16] MEDS: Lactated Ringers 500 ML 50 ML IV (07:11)
--- NOTE | 2024-04-16 07:28 | MHC.SHP ---
Pre-Procedural Eval Section A - 24 Hr Update-Section A only Date of Service: 04/16/24 The patient is an INPATIENT: No Changes since office visit: No Cold of Flu in the past 2 weeks, No New Medical Problems, No Changes in Medication and No Patient answered all questions The patient has been examined within 24 hours of the surgical procedure. The History & Physical has been completed within 30 days and I have reviewed it.: Yes Section B - Complete if H&P > 30 days Chief Complaint: Age-related nuclear cataract, left eye Allergies: Allergies Allergy/AdvReac Type Severity Reaction Status Date / Time Penicillins Allergy Unknown Verified 04/16/24 07:25 Plan Diagnosis/Plan: Unchanged I have reviewed the history and physical and performed a pertinent physical examination on my patient. No changes have occurred unless specified. Time Spent With Patient Time: Total time managing care of this patient today ____ minutes.
--- NOTE | 2024-04-16 07:29 | HO.PNOPHT ---
Ophthalmology Procedure Procedure Date of Service: 04/16/24 Ophthalmology Viscoelastic: Healon Duet Dual Pack Pro Ophthalmology Lenses: IOL Acrysof MP - MA60AC (16.5) Procedure Notes: PREOPERATIVE DIAGNOSIS: Decreased visual acuity left eye secondary to cataract POSTOPERATIVE DIAGNOSIS: Same PROCEDURE: Left cataract extraction with intraocular lens insertion SURGEON: Stevan Lechuga M.D. ANESTHESIA: Topical/MAC ESTIMATED BLOOD LOSS: None COMPLICATIONS: None After obtaining informed consent, the patient was brought to the operation room suite and placed in the supine position. After adequate sedation per anesthesia, topical drops of Tetracaine were given to the left eye. The eye was then prepped and draped in the usual sterile fashion. The operating room microscope was then positioned over the operative eye and a lid speculum placed. A paracentesis was created. Viscoelastic was then instilled into the anterior chamber. A three plane incision was then created temporally, utilizing a 2.85 mm keratome. Capsulotomy forceps were then utilized to create a circular tear capsulotomy. Hydrodissection and hydrodelineation were carried out until adequate mobilization of the nucleus occurred. Phacoemulsification was then utilized to remove the dense central nucleus followed by removal of the cortical material utilizing the automated aspiration irrigation unit. Viscoat elastic was instilled into the posterior capsular bag followed by placement of a posterior chamber intraocular lens without difficulty. The residual Viscoat elastic was then removed utilizing the automated IA machine. The wound was check and found to be watertight. The patient tolerated the procedure well and the lid speculum was removed. Intracameral injection of Vigamox 0.1 mL followed by a subtenon injection of Kenalog-40 0.2 mL were administered. The patient will be seen in the a.m.
--- NOTE | 2024-04-16 07:32 | HO.ANESPROP2 ---
[facility] Past Medical History Medical History Bilateral cataracts Osteoporosis Surgical History Surgical History H/O colonoscopy History of Problems with Anesthesia: No Social History Social History Are you a primary nonfarm animal caretaker to a significant other at home: No Do you presently have visiting nurse or other home services: No Patient Tobacco Use Status: Never used Tobacco Use of substances other than those prescribed or required for medical reasons: No Have you been hit, kicked, punched, or otherwise hurt by someone within the past year? If so, by whom?: No Are you DNR?: No Advance Directives: No Advance Directives Information Provided: Yes Advance Directives on File: No Recently lost weight without trying: No Eating poorly because of decreased appetite: No Nutrition Risks: No Nutritional Risk Patient : No : No Meds Allergies Allergy/AdvReac Type Severity Reaction Status Date / Time Penicillins Allergy Unknown Verified 04/16/24 07:25 Active Medications: Current Medications Lactated Ringer's (Lr) 500 mls @ 50 mls/hr IV .Q10H SHILA Stop: 04/16/24 17:14 Last Admin: 04/16/24 07:11 Dose: 50 mls/hr Povidone Iodine (Povidone Iodine 5 % Ophth Soln 30 Ml Bottle) 1 appl EYE-LEFT PREOP PRN PRN Reason: Pre-Op Surgical Implant Prophy Home Medications ?Medication ?Instructions ?Recorded ?Confirmed ?Last Taken ?Type No Known Home Meds 03/29/24 03/29/24 Unknown History Exam Height,Weight and Vital Signs: Height 5 ft 1.02 in Weight 59.3 kg Last Vital Signs Temp 98.8 F 04/16/24 06:48 Pulse 79 04/16/24 06:48 Resp 14 04/16/24 06:48 BP 128/67 04/16/24 06:48 Pulse Ox 98 04/16/24 06:48 O2 Del Method Room Air 04/16/24 06:48 Airway Mallampati Class: II TM Dist: >3cm Neck ROM: Full Loose/Missing/Broken Teeth: No Heart: RRR Lungs: CTA Assessment and Plan Assessment Anesthesia Assessment: Anesthesia Plan Discussed and Chart Reviewed Final Anesthetic Review History of Problems with Anesthesia: No NPO: Yes ASA Class: II Final Preanesthetic Review: Meds/Rose Chart Reviewed Patient Risk: Low Procedure Risk: Low Anesthetic Plan Anesthetic Plan: MAC: Disposition: Standard PACU
[2024-04-16 07:57] VITALS: BP 108/49; PULSE 69; RESP 18; TEMP 36.2; O2SAT 100
[2024-04-16 08:15] VITALS: BP 102/52; PULSE 70; RESP 18; TEMP 36.2; O2SAT 98
--- NOTE | 2024-04-16 12:29 | MHC.SHP ---
Pre-Procedural Eval Section A - 24 Hr Update-Section A only Date of Service: 04/16/24 Section B - Complete if H&P > 30 days Chief Complaint: Age-related nuclear cataract, left eye Allergies: Allergies Allergy/AdvReac Type Severity Reaction Status Date / Time Penicillins Allergy Unknown Verified 04/16/24 07:25 Plan I have reviewed the history and physical and performed a pertinent physical examination on my patient. No changes have occurred unless specified. Time Spent With Patient Time: Total time managing care of this patient today ____ minutes.
== END 2024-04-16 08:23 | disposition home or self-care (01) ==
PROVIDERS: PCP Internal Medicine; Visit Provider Ophthalmology
PROC: (CPT 66985; principal; 2024-04-16 07:30)
DX: H25.12 Age-related nuclear cataract, left eye (principal); H52.4 Presbyopia; H11.153 Pinguecula, bilateral; H18.413 Arcus senilis, bilateral; H35.09 Other intraretinal microvascular abnormalities; D18.01 Hemangioma of skin and subcutaneous tissue; M81.0 Age-related osteoporosis without current pathological fracture; Z88.0 Allergy status to penicillin
CPT/HCPCS: 66984; J2250; J3301; V2630